=== PATIENT | female | born 1975 | race American Indian/Alaskan Native ===

== ENCOUNTER 2020-09-30 12:37 | Emergency (ER) | payer MEDICAID, OTHER ==
--- NOTE | 2020-09-30 13:03 | Emergency Department Report ---
Blank Doc - Documentation Documentation: 45-year-old female that presents with headache and HTN. Patient stated she pr imiarly came in for work excuse but also stated has headache and uncontrolled HTN. Patient stated she just taken her hydralazine 10 mg This initial assessment/diagnostic orders/clinical plan/treatment(s) is/are subject to change based on patient's health status, clinical progression and re- assessment by fellow clinical providers in the ED. Further treatment and workup at subsequent clinical providers discretion. Patient/guardians urged not to elope from the ED as their condition may be serious if not clinically assessed and managed. Initial orders include: 1- Patient sent to [facility] for further evaluation and treatment 2- labs-r/o HTN emergency 3- CT head
[2020-09-30] MEDS ORDERED: ZIPRASIDONE MESYLATE 20 MG VIAL IM ONE (13:04)
[2020-09-30] MEDS ORDERED: WATER FOR INJ Sterile (PF) 10 ML ONE (13:05)
--- NOTE | 2020-09-30 14:00 | XRay Report ---
CHEST 2 VIEWS INDICATION / CLINICAL INFORMATION: cough. COMPARISON: None available. FINDINGS: SUPPORT DEVICES: None. HEART / MEDIASTINUM: No significant abnormality. LUNGS / PLEURA: No significant pulmonary or pleural abnormality. No pneumothorax. ADDITIONAL FINDINGS: No significant additional findings. IMPRESSION: 1. No acute findings. Signer Name: Perez Castro MD Signed: 09/30/2020 1:55 PM Workstation Name: [id number]
[2020-09-30 14:17] LABS: Bilirubin,Urine NEG (Negative); Blood,Urine SM (Negative); Color,Urine Yellow (Yellow); Mucus,Urine FEW /HPF
[2020-09-30 14:23] LABS: Basophils # (Auto) 0.1 K/mm3 (0.0-0.1); Basophils % (Auto) 0.7 % (0.0-1.8); Eosinophils # (Auto) 0.1 K/mm3 (0.0-0.4); Eosinophils % (Auto) 0.5 % (0.0-4.3); Hemoglobin 14.3 gm/dl (10.1-14.3); Lymphocytes # (Auto) 3.2 K/mm3 (1.2-5.4); Lymphocytes % (Auto) 28.3 % (13.4-35.0); Mean Corpuscular HGB Conc 34 % (30-34); Mean Corpuscular Volume 99 fl (79-97); Monocytes # (Auto) 0.8 K/mm3 (0.0-0.8); Monocytes % (Auto) 7.1 % (0.0-7.3); Platelet Count 332 K/mm3 (140-440); Red Blood Count 4.25 M/mm3 (3.65-5.03); Red Cell Distribution Width 14.7 % (13.2-15.2)
[2020-09-30 14:40] LABS: Alanine Aminotransferase 16 units/L (7-56); Albumin 4.3 g/dL (3.9-5); Blood Urea Nitrogen 5 mg/dL (7-17); Calcium 9.2 mg/dL (8.4-10.2); Hemolysis Index 0
[2020-09-30 14:42] LABS: BUN/Creatinine Ratio 8
--- NOTE | 2020-09-30 16:26 | Cat Scan Report ---
NONENHANCED CT SCAN OF THE HEAD: INDICATION / CLINICAL INFORMATION: 45 years Female; headache. TECHNIQUE: Routine CT head without contrast. All CT scans at this location are performed using CT dos e reduction for ALARA by means of automated exposure control. COMPARISON: None. FINDINGS: BRAIN / INTRACRANIAL CONTENTS: No acute hemorrhage, mass effect, midline shift, hydrocephalus, or acu te, large territorial infarct. No chronic infarct or focal atrophy. No hydrocephalus; Empty sella CRANIOCERVICAL JUNCTION: No significant abnormality. ORBITS: Ocular globes normal; no flattening of optic nerve head SINUSES / MASTOIDS: No significant abnormality of the visualized paranasal sinuses or mastoid air nick ls. ADDITIONAL FINDINGS: None. IMPRESSION: No acute focal parenchymal lesion in the brain Signer Name: Isra Loya MD Signed: 09/30/2020 4:22 PM Workstation Name: [id number]
[2020-09-30 18:05] VITALS: BP 199/125
--- NOTE | 2020-09-30 18:07 | Emergency Department Report ---
ED General Adult HPI - General Chief complaint: Medical Clearance Stated complaint: COLD Time Seen by Provider: 09/30/20 12:58 Source: patient Mode of arrival: Ambulatory Limitations: No Limitations - History of Present Illness Initial comments: 45-year-old female, history of hypertension, presents to ED requesting medical clearance to return to work. Patient states she was out for a week with a cold. Patient denies getting tested for Covid. She reports her symptoms have now resolved. Of note, upon patient's arrival her blood pressure was elevated and she was also reporting a headache. However patient reports she had not taken her blood pressure medicine prior to them checking her BP. Patient states she then took her hydralazine, upon recheck her blood pressure was even higher. Patient states her headache is currently resolved. - Related Data Home Medications Medication Instructions Recorded Confirmed Last Taken amLODIPine [Norvasc] 20 mg PO DAILY 06/15/16 06/15/16 06/14/16 Previous Rx's Medication Instructions Recorded Last Taken Type HYDROcodone/APAP 5-325 [Alpha 1 each PO Q4HR PRN #12 tablet 06/15/16 Unknown Rx 5/325] Allergies Allergy/AdvReac Type Severity Reaction Status Date / Time No Known Allergies Allergy Verified 06/14/16 23:08 ED Review of Systems ROS: Stated complaint: COLD Other details as noted in HPI ED Past Medical Hx - Past Medical History Previous Medical History?: Yes Hx Hypertension: Yes - Surgical History Past Surgical History?: Yes Additional Surgical History: HYSTERECTOMY - Social History Smoking Status: Current Every Day Smoker Substance Use Type: None - Medications Home Medications: Home Medications Medication Instructions Recorded Confirmed Last Taken Type HYDROcodone/APAP 5-325 [Alpha 1 each PO Q4HR PRN #12 tablet 06/15/16 Unknown Rx 5/325] amLODIPine [Norvasc] 20 mg PO DAILY 06/15/16 06/15/16 06/14/16 History ED Physical Exam - General Limitations: No Limitations ED Course Vital Signs 09/30/20 09/30/20 09/30/20 12:45 16:24 18:04 Temperature 98.8 F Pulse Rate 104 H 110 H 90 Respiratory 20 18 19 Rate Blood Pressure 196/126 Blood Pressure 226/152 199/125 [Right] O2 Sat by Pulse 98 100 99 Oximetry 09/30/20 18:16 Temperature Pulse Rate 90 Respiratory Rate Blood Pressure 199/125 Blood Pressure [Right] O2 Sat by Pulse Oximetry ED Medical Decision Making - Lab Data Result diagrams: 09/30/20 13:54 09/30/20 13:54 - Radiology Data Radiology results: report reviewed, image reviewed - Medical Decision Making 45-year-old female presents to ED for return to work note. Patient found to have elevated blood pressure here in the ED. She was complaining of headache. Work-up ensued. CT head negative for any acute findings. Labs are unremarkable. Patient has since taken her blood pressure medication, however blood pressure remains elevated, so clonidine given. It was also discovered that patient's blood pressure could be elevated secondary to cold medication that she has been taking over the past week. Patient advised to take Coricidin HBP in the future for her cold symptoms. She will be discharged at this time, outpatient follow-up advised. Return precautions given. - Differential Diagnosis Uncontrolled hypertension, intracranial abnormalities, renal failure Critical care attestation.: If time is entered above; I have spent that time in minutes in the direct care of this critically ill patient, excluding procedure time. ED Disposition Clinical Impression: Uncontrolled hypertension Disposition: [id number]-01 TO HOME OR SELFCARE Is pt being admited?: No Condition: Stable Instructions: Hypertension, Adult, Hypertension (ED) Referrals: CHRIS CRUZ MD [Staff Physician] - 3-5 Days [facility] [Provider Group] - 3-5 Days [facility] [Outside] - 3-5 Days Forms: Work/School Release Form(ED)
[2020-09-30] MEDS ORDERED: cloNIDine 0.2 MG TAB PO ONE (18:08)
== END 2020-09-30 18:20 | disposition home or self-care (01) ==
LOC: ED 12:37
DX: I10 Essential (primary) hypertension (principal); F17.200 Nicotine dependence, unspecified, uncomplicated; Z79.899 Other long term (current) drug therapy; Z90.710 Acquired absence of both cervix and uterus
CPT/HCPCS: 36415; 70450; 71046; 80053; 81001; 84703; 85025; J3486